=== PATIENT | female | born 1950 | race Caucasian/White ===

== ENCOUNTER → 2016-10-24 | Outpatient (CLI) | payer MEDICARE ==
--- NOTE | 2016-10-24 07:46 | RAD ---
Indication: Chronic kidney disease type III. The right kidney measures 10.5 x 4.3 x 4.4 cm and the left kidney measures 10.2 x 4.3 x 4.9 cm. The cortical thickness and echogenicity is normal. No calculi or hydronephrosis is identified. The bladder is unremarkable. Impression: Unremarkable renal ultrasound.
[2016-10-24 08:03] LABS: HEMATOCRIT 29.3 % (36.0-47.0); HEMOGLOBIN 9.5 g/dL (12.0-15.5)
[2016-10-24 08:34] LABS: ALBUMIN 3.2 g/dL (3.4-5.0); CALCIUM 8.8 mg/dL (8.5-10.1); CREATININE 1.8 mg/dL (0.6-1.0); POTASSIUM 3.8 mmol/L (3.5-5.1)
[2016-10-24 08:38] LABS: % SAT IRON 15 % (15-34); IRON,SERUM 35 ug/dL (50-170)
[2016-10-24 22:12] LABS: TOTAL PROTEIN CREATININE RATIO 245 mg/g creat (0-200); UR PROTEIN RD 36.6 mg/dL (Not Estab.)
[2016-10-25 00:11] LABS: VITAMIN D25(OH)TOTAL 5.8 ng/mL (30.0-100.0)
== END | disposition home or self-care (01) ==
LOC: US 07:19
PROVIDERS: ATTEND Internal Medicine Nephrology
DX: N18.3 Chronic kidney disease, stage 3 (moderate) (principal); R60.9 Edema, unspecified
CPT/HCPCS: 36415; 76770; 80069; 82043; 82306; 82570; 82607; 82728; 83036; 83540; 83550; 84156; 85014; 85018

== ENCOUNTER → 2017-02-02 | Outpatient (CLI) | payer MEDICARE ==
--- NOTE | 2017-02-02 11:48 | CARD ---
APPROVED REPORT EXAM: Two-dimensional and M-mode echocardiogram with Doppler and color Doppler. Other Information Quality : Good INDICATION Hypertension/HCVD 2D DIMENSIONS RVDd2.7 (2.9-3.5cm)Left Atrium(2D)4.2 (1.6-4.0cm) IVSd1.8 (0.7-1.1cm)Aortic Root(2D)2.9 (2.0-3.7cm) LVDd3.5 (3.9-5.9cm)LVOT Diameter2.0 (1.8-2.4cm) PWd1.5 (0.7-1.1cm)LVDs2.0 (2.5-4.0cm) FS (%) 30.0 %SV36.2 ml LVEF(%)60.0 (>50%) Aortic Valve AoV Peak Maxwell.165.7cm/sAoV VTI35.3cm AO Peak GR.11.0mmHgLVOT Peak Maxwell.116.0cm/s AO Mean GR.6mmHgAVA (VMAX)2.21cm2 LOBO (VTI)2.40cm2 Mitral Valve MV E Jzspircn20.7cm/sMV DECEL OTCV160bv MV A Qoythibv857.5cm/sE/A Ratio0.8 Tricuspid Valve TR P. Sbyobcvr324nq/sRAP GCRWFFRZ6iqHe TR Peak Gr.88djKwMOWZ19ooQi Pulmonary Vein S1 Pyfxzdij39.0cm/sD2 Pssvaqmy19.4cm/s PVa [id number] LEFT VENTRICLE The left ventricle is normal size. There is mild to moderate concentric left ventricular hypertrophy. The left ventricular systolic function is normal and the ejection fraction is within normal range. T he Ejection Fraction is 60-65%. There is normal LV segmental wall motion. Transmitral Doppler flow pa ttern is Grade I-abnormal relaxation pattern. RIGHT VENTRICLE The right ventricle is normal size. The right ventricular systolic function is normal. ATRIA The left atrium is mildly dilated. The right atrium size is normal. The interatrial septum is intact with no evidence for an atrial septal defect or patent foramen ovale as noted on 2-D or Doppler imagi ng. AORTIC VALVE The aortic valve is calcified but opens well. Doppler and Color Flow revealed no significant aortic r egurgitation. There is no significant aortic valvular stenosis. MITRAL VALVE The mitral valve is calcified but opens well. There is no evidence of mitral valve prolapse. There is no mitral valve stenosis. Doppler and Color-flow revealed mild mitral regurgitation. TRICUSPID VALVE The tricuspid valve is normal in structure and function. Doppler and Color Flow revealed trace tricus pid regurgitation. The PA pressure was estimated at 30 mmHg. There is no tricuspid valve stenosis. PULMONIC VALVE Doppler and Color Flow revealed trace to mild pulmonic valvular regurgitation. There is no pulmonic v alvular stenosis. GREAT VESSELS The aortic root is normal in size. The ascending aorta is normal in size. The IVC is normal in size a nd collapses >50% with inspiration. PERICARDIAL EFFUSION There is no evidence of significant pericardial effusion. Critical Notification Critical Value: No <Conclusion> The left ventricular systolic function is normal and the ejection fraction is within normal range. Th e Ejection Fraction is 60-65%. There is normal LV segmental wall motion.
== END | disposition home or self-care (01) ==
LOC: ECHO 07:56
PROVIDERS: ATTEND Internal Medicine Cardiovascular Disease
DX: I08.1 Rheumatic disorders of both mitral and tricuspid valves (principal)
CPT/HCPCS: 93306

== ENCOUNTER → 2017-02-19 | Outpatient (CLI) | payer MEDICARE | END | disposition home or self-care (01) | LOC: US 12:41 | PROVIDERS: ATTEND Internal Medicine Cardiovascular Disease | DX: I10 Essential (primary) hypertension (principal); R60.0 Localized edema | CPT/HCPCS: 93970 ==

== ENCOUNTER 2017-07-18 17:02 | Emergency (ER) | payer MEDICARE ==
[~2017-07-18] VITALS: Ht 153.7 cm; Wt 92.1 kg
[2017-07-18 17:40] LABS: BASO % 1 % (0-3); EOS % 1 % (0-3); HEMATOCRIT 30.2 % (36.0-47.0); HEMOGLOBIN 9.9 g/dL (12.0-15.5); LYMPH # 1.7 x10^3/uL (1.0-4.8); LYMPH % 19 % (24-48); MEAN CORPUSCULAR HEMOGLOBIN 26 pg (25-35); MEAN CORPUSCULAR HGB CONC 33 g/dL (31-37); MEAN CORPUSCULAR VOLUME 79 fL (79-100); MONO % 8 % (0-9); NEUT % 72 % (31-73); PLATELET COUNT 180 x10^3/uL (140-400); RED BLOOD COUNT 3.85 x10^6/uL (3.50-5.40); RED CELL DISTRIBUTION WIDTH 14.9 % (11.5-14.5); WHITE BLOOD COUNT 8.9 x10^3/uL (4.0-11.0)
[2017-07-18 17:48] LABS: CALCIUM 8.6 mg/dL (8.5-10.1); CREATININE 2.3 mg/dL (0.6-1.0); GFR 21.1; POTASSIUM 4.1 mmol/L (3.5-5.1)
[2017-07-18 17:53] LABS: ALBUMIN/GLOBULIN RATIO 0.6 (1.0-1.7); TOTAL BILIRUBIN 0.6 mg/dL (0.2-1.0)
--- NOTE | 2017-07-18 18:28 | RAD ---
Left Lower Extremity Venous Doppler Ultrasound Indication: Left lower extremity swelling, calf tightness. Comparison: None. Procedure: Color Doppler, spectral Doppler, and grayscale images with and without compression are obtained in the area of the common femoral vein, superficial femoral vein - femoral vein junction, main femoral vein (superficial femoral vein) and popliteal vein. Veins of the proximal calf are also imaged. Findings: There is normal duplex flow, color flow and compressibility of all visualized vein segments. There is no evidence of deep venous thrombosis. Left superficial femoral vein appears duplicated. There is evidence of subcutaneous edema of the left lower extremity. Reactive left inguinal lymph nose are seen. Impression: No evidence of left lower extremity deep venous thrombosis. Electronically signed by: Mt Omer MD (07/18/2017 6:24 PM) [facility]
[2017-07-18] MEDS ORDERED: SULF1TAB24 PO (18:30)
--- NOTE | 2017-07-18 18:30 | PHYS DOC ---
Past Medical History Past Medical History: Anxiety, Diabetes-Type II, Hypertension, Other Additional Past Medical Histor: lower extremity fluid retention Past Surgical History: No Surgical History Alcohol Use: None Drug Use: None Adult General Chief Complaint Chief Complaint: LOWER EXTREMITY SWELLING HPI HPI Patient is a 66 year old female brought to the ED by her daughter with the complaint of left leg swelling for a few days. The patient has had bilateral leg swelling for several months. She had an echocardiogram which was reported as normal. She has been taking Lasix for a few months. She has not quit taking it. Her leg swelling has been stable, until just the last day or 2 when her left leg became more swollen and also has had some pain. She denies fever or chills. Denies shortness of air. She's never had a blood clot. PCP Dr. Merly Shoemaker Patient is being treated for hypertension and diabetes. She denies history of congestive heart failure or fluid on her lungs. She also has kidney disease and sees Dr. Perez for that. She sees Dr. King for cardiology. Review of Systems Review of Systems Constitutional: Denies fever or chills [] HENT: Denies nasal congestion or sore throat [] Respiratory: Denies cough or shortness of breath [] Cardiovascular: Denies chest pain GI: Denies abdominal pain, nausea, vomiting, bloody stools or diarrhea [] : Denies dysuria or hematuria [] Musculoskeletal: Denies back pain or joint pain [] Integument: As in history of present illness Neurologic: Denies headache Allergies Allergies Allergies Coded Allergies Type Severity Reaction Last Updated Verified ROGER Inhibitors Allergy Intermediate severe cough 07/18/17 Yes Physical Exam Physical Exam Constitutional: Well developed, well nourished, no acute distress, non-toxic appearance. Pulse ox 98% on room air. HENT: Normocephalic, atraumatic, bilateral external ears normal, nose normal. [ ] Eyes: conjunctiva normal, no discharge. [] Neck: Normal range of motion, no stridor. [] Cardiovascular:Heart rate regular rhythm, no murmur [] Lungs & Thorax: Bilateral breath sounds clear to auscultation without rales Abdomen: Bowel sounds normal, soft, no tenderness, no masses, no pulsatile masses. [] Skin: Warm, dry, no erythema, no rash. [] Extremities: Right leg has 1+ pretibial and ankle edema with a little foot edema. Left leg has more swelling than the right, with redness and warmth of the calf and ankle. There is firmness and induration of the left calf. It is nontender. There is no foot ulcer or lesion but she does have a mild amount of dry skin on both feet. Neurologic: Alert and oriented X 3, normal motor function, no focal deficits noted. [] Current Patient Data Vital Signs Vital Signs Date Time Temp Pulse Resp B/P (MAP) Pulse Ox O2 Delivery O2 Flow Rate FiO2 07/18/17 17:10 98.2 71 24 179/79 (112) 99 Room Air 98.2 Lab Values Laboratory Tests Test 07/18/17 17:25 White Blood Count 8.9 x10^3/uL (4.0-11.0) Red Blood Count 3.85 x10^6/uL (3.50-5.40) Hemoglobin 9.9 g/dL (12.0-15.5) L Hematocrit 30.2 % (36.0-47.0) L Mean Corpuscular Volume 79 fL (79-100) Mean Corpuscular Hemoglobin 26 pg (25-35) Mean Corpuscular Hemoglobin Concent 33 g/dL (31-37) Red Cell Distribution Width 14.9 % (11.5-14.5) H Platelet Count 180 x10^3/uL (140-400) Neutrophils (%) (Auto) 72 % (31-73) Lymphocytes (%) (Auto) 19 % (24-48) L Monocytes (%) (Auto) 8 % (0-9) Eosinophils (%) (Auto) 1 % (0-3) Basophils (%) (Auto) 1 % (0-3) Neutrophils # (Auto) 6.4 x10^3uL (1.8-7.7) Lymphocytes # (Auto) 1.7 x10^3/uL (1.0-4.8) Monocytes # (Auto) 0.7 x10^3/uL (0.0-1.1) Eosinophils # (Auto) 0.1 x10^3/uL (0.0-0.7) Basophils # (Auto) 0.0 x10^3/uL (0.0-0.2) D-Dimer (Kayleen) 1.12 ug/mlFEU (0.00-0.50) H Sodium Level 136 mmol/L (136-145) Potassium Level 4.1 mmol/L (3.5-5.1) Chloride Level 100 mmol/L (98-107) Carbon Dioxide Level 26 mmol/L (21-32) Anion Gap 10 (6-14) Blood Urea Nitrogen 21 mg/dL (7-20) H Creatinine 2.3 mg/dL (0.6-1.0) H Estimated GFR (Cockcroft-Gault) 21.1 BUN/Creatinine Ratio 9 (6-20) Glucose Level 220 mg/dL (70-99) H Calcium Level 8.6 mg/dL (8.5-10.1) Total Bilirubin 0.6 mg/dL (0.2-1.0) Aspartate Amino Transferase (AST) 15 U/L (15-37) Alanine Aminotransferase (ALT) 23 U/L (14-59) Alkaline Phosphatase 80 U/L (46-116) DU-Lur-Z-Type Natriuretic Peptide 533 pg/mL (0-124) H Total Protein 8.0 g/dL (6.4-8.2) Albumin 3.0 g/dL (3.4-5.0) L Albumin/Globulin Ratio 0.6 (1.0-1.7) L Laboratory Tests 07/18/17 17:25 Laboratory Tests 07/18/17 17:25 EKG EKG [] Radiology/Procedures Radiology/Procedures Venous Doppler of the left lower extremity. No evidence of DVT. Reactive lymph nodes in the groin.[] Course & Med Decision Making Course & Med Decision Making Pertinent Labs and Imaging studies reviewed. (See chart for details) 66-year-old female with a history of hypertension, diabetes, and kidney disease , presents with left leg has become more swollen than the right over the last day or 2, with some redness and warmth. Vascular Doppler was done and DVT is ruled out. Labs are stable. I believe the patient's left leg symptoms are from cellulitis. See instructions for plan. [] Dragon Disclaimer Dragon Disclaimer This electronic medical record was generated, in whole or in part, using a voice recognition dictation system. Departure Departure Impression: Primary Impression: Cellulitis of left leg Disposition: 01 HOME, SELF-CARE Condition: STABLE Referrals: MERLY SHOEMAKER MD (PCP) Patient Instructions: Cellulitis, [id number] Additional Instructions: Tests in the emergency department were negative for blood clot. I believe your leg swelling, redness, and warmth is from cellulitis, which is a skin infection. We will treat your cellulitis with an antibiotic. It's very important to try to stay off of your legs and keep your left leg elevated as much as possible especially for the next 2 or 3 days, to keep the swelling down. If you develop fever, chills, feeling weak or worse, return, you may need to be admitted for IV antibiotics. Scripts Sulfamethoxazole/Trimethoprim (BACTRIM DS TABLET) 1 Each Tablet 1 TAB PO BID for cellulitis, #20 TAB Prov: ANATOLY ANDERSON MD 07/18/17 ANATOLY ANDERSON MD Jul 18, 2017 18:30
[2017-07-18 18:50] VITALS: BP 163/77
== END 2017-07-18 18:58 | disposition home or self-care (01) ==
LOC: ER 17:02
DX: L03.116 Cellulitis of left lower limb (principal); I10 Essential (primary) hypertension; E11.9 Type 2 diabetes mellitus without complications; Z88.8 Allergy status to other drugs, medicaments and biological substances
CPT/HCPCS: 36415; 80053; 83880; 85025; 85379; 93971; 99285-25

== ENCOUNTER → 2017-09-10 | Outpatient (CLI) | payer MEDICARE ==
[~2017-09-10] MED LIST: AMOX1TAB61 PO; HYDR-971 PO; SULF1TAB24 PO
--- NOTE | 2017-09-10 15:30 | RAD ---
DATE: 09/10/2017 EXAM: DIGITAL SCREEN BILAT W/CAD HISTORY: Routine screening COMPARISON: None available This study was interpreted with the benefit of Computerized Aided Detection (CAD). The breast parenchyma is heterogeneously dense, which could reduce sensitivity of mammography. Breast parenchyma level C. FINDINGS: A small nodule at the 12:00 location in the left breast demonstrates coarse calcifications compatible with a benign fibroadenoma. No other discrete mass is seen. There are additional scattered benign type calcifications in both breasts. Benign-appearing lymph node type densities are present in the axillary regions. IMPRESSION: There is no mammographic evidence of malignancy in either breast. BI-RADS CATEGORY: 2 BENIGN FINDING(S) RECOMMENDED FOLLOW-UP: 12M 12 MONTH FOLLOW-UP PQRS compliance statement: Patient information was entered into a reminder system with a target due date for the next mammogram. Mammography is a sensitive method for finding small breast cancers, but it does not detect them all and is not a substitute for careful clinical examination. A negative mammogram does not negate a clinically suspicious finding and should not result in delay in biopsying a clinically suspicious abnormality. "Our facility is accredited by the [employer] Mammography Program."
== END | disposition home or self-care (01) ==
LOC: MAMMO 14:48
PROVIDERS: ATTEND Family Medicine
DX: Z12.31 Encounter for screening mammogram for malignant neoplasm of breast (principal)
CPT/HCPCS: G0202; 77067

== ENCOUNTER 2017-09-12 14:19 | Emergency (ER) | payer MEDICARE ==
[~2017-09-12] VITALS: Ht 154.9 cm; Wt 92.1 kg
[~2017-09-12 14:19] MED LIST changes: -AMOX1TAB61 PO; -HYDR-971 PO
[2017-09-12 14:45] VITALS: BP 123/59
[2017-09-12] MEDS ORDERED: DIPHTH,PERTUSS(ACELL),TET TOX 0.5 ML DISP.SYRIN. VAX IM ONE (14:45)
--- NOTE | 2017-09-12 15:11 | RAD ---
Indication: Nasal pain after fall. Technique: Axial images and coronal and sagittal reformatted images are provided. No comparison is available. One or more of the following individualized dose reduction techniques were utilized for this examination: 1. Automated exposure control 2. Adjustment of the mA and/or kV according to patient size 3. Use of iterative reconstruction technique Findings: There is no orbital fracture. Zygomatic arches are intact. There is a minimally depressed nasal bone fracture on the right. Acuity is not clear. There is nasal septal deviation to the right. There is some irregularity of the nasal septum which is not specific. Pterygoid plates are intact. Mandible is intact. There is no hemosinus. Paranasal sinuses are clear. The included mastoid air cells are clear. Orbital contents are unremarkable. Impression: 1. Right nasal bone fracture, the acuity of which is not clear. 2. Irregularity at the bony nasal septum, fractured nasal septum not excluded. There is no adjacent opacity present. Nasal septal hematoma is a clinical diagnosis frequently missed by imaging.
[2017-09-12] MEDS ORDERED: AMOX1TAB61 PO (15:50)
[2017-09-12] MEDS ORDERED: HYDR-971 PO (15:50)
--- NOTE | 2017-09-12 15:50 | PHYS DOC ---
Past Medical History Past Medical History: Anxiety, Diabetes-Type II, Hypertension, Other Additional Past Medical Histor: lower extremity fluid retention Past Surgical History: No Surgical History Alcohol Use: None Drug Use: None Adult General Chief Complaint Chief Complaint: NOSEBLEED HPI HPI Patient is a 66 year old female who presents with hx of HTN, DMII who presents nose pain after tripping and falling. Patient denies any LOC. Review of Systems Review of Systems Constitutional: Denies fever or chills [] Eyes: Denies change in visual acuity, redness, or eye pain [] HENT: Reports nose pain. Denies nasal congestion or sore throat [] Respiratory: Denies cough or shortness of breath [] Cardiovascular: No additional information not addressed in HPI [] GI: Denies abdominal pain, nausea, vomiting, bloody stools or diarrhea [] : Denies dysuria or hematuria [] Musculoskeletal: Denies back pain or joint pain [] Integument: Denies rash or skin lesions [] Neurologic: Denies headache, focal weakness or sensory changes [] All other systems were reviewed and found to be within normal limits, except as documented in this note. Current Medications Current Medications Current Medications Medications (Trade) Dose Ordered Sig/Timmy Start Time Stop Time Status Last Admin Dose Admin Diphtheria/ Tetanus/Acell Pertussis (Boostrix) 0.5 ml ONCE ONCE 09/12/17 14:45 09/12/17 14:46 DC Allergies Allergies Allergies Coded Allergies Type Severity Reaction Last Updated Verified ROGER Inhibitors Allergy Intermediate severe cough 07/18/17 Yes Physical Exam Physical Exam Constitutional: Well developed, well nourished, no acute distress, non-toxic appearance. [] HENT: Normocephalic, atraumatic, bilateral external ears normal, oropharynx moist, no oral exudates, nose appears obviously deformed at the nasal bridge. There is soft tissue swelling noted on the nasal bridge as well as bruising. Dry blood noted in the right nasal cavity. No active nose bleeding. Eyes: PERRLA, EOMI, conjunctiva normal, no discharge. [] Neck: Normal range of motion, no tenderness, supple, no stridor. [] Cardiovascular:Heart rate regular rhythm, no murmur [] Lungs & Thorax: Bilateral breath sounds clear to auscultation [] Abdomen: Bowel sounds normal, soft, no tenderness, no masses, no pulsatile masses. [] Skin: Warm, dry, no erythema, no rash. [] Back: No tenderness, no CVA tenderness. [] Extremities: No tenderness, no cyanosis, no clubbing, ROM intact, no edema. [] Neurologic: Alert and oriented X 3, normal motor function, normal sensory function, no focal deficits noted. [] Psychologic: Affect normal, judgement normal, mood normal. [] Current Patient Data Vital Signs Vital Signs Date Time Temp Pulse Resp B/P (MAP) Pulse Ox O2 Delivery O2 Flow Rate FiO2 09/12/17 14:45 97.9 72 18 96 Room Air 97.9 EKG EKG [] Radiology/Procedures Radiology/Procedures []PROCEDURE: CT MAXILLOFACIAL WO CONTRAST Indication: Nasal pain after fall. Technique: Axial images and coronal and sagittal reformatted images are provided. No comparison is available. One or more of the following individualized dose reduction techniques were utilized for this examination: 1. Automated exposure control 2. Adjustment of the mA and/or kV according to patient size 3. Use of iterative reconstruction technique Findings: There is no orbital fracture. Zygomatic arches are intact. There is a minimally depressed nasal bone fracture on the right. Acuity is not clear. There is nasal septal deviation to the right. There is some irregularity of the nasal septum which is not specific. Pterygoid plates are intact. Mandible is intact. There is no hemosinus. Paranasal sinuses are clear. The included mastoid air cells are clear. Orbital contents are unremarkable. Impression: 1. Right nasal bone fracture, the acuity of which is not clear. 2. Irregularity at the bony nasal septum, fractured nasal septum not excluded. There is no adjacent opacity present. Nasal septal hematoma is a clinical diagnosis frequently missed by imaging. DICTATED and SIGNED BY: KEMAR MCKEON MD DATE: 09/12/17 [id number] CC: MERLY VIGIL MD; KERI MORENO APRN; AUDREY,STAFF ~ Course & Med Decision Making Course & Med Decision Making Pertinent Labs and Imaging studies reviewed. (See chart for details) Patient is in the ED with nose pain after falling. CT of the maxillary facial was noted for- Right nasal bone fracture, Irregularity at the bony nasal septum, fractured nasal septum not excluded. Patient be discharged with Augmentin provided instructions to follow-up with [facility] plastic surgery. Dragon Disclaimer Dragon Disclaimer This electronic medical record was generated, in whole or in part, using a voice recognition dictation system. Departure Departure Impression: Primary Impression: Nasal bone fx-open Additional Impression: Fall from standing Disposition: 01 HOME, SELF-CARE Condition: STABLE Referrals: MERLY VIGIL MD (PCP) Patient Instructions: Nasal Fracture, [id number] Additional Instructions: You have nose fracture. Please call [facility] plastic surgery [phone] and set up appointment for follow up Scripts Hydrocodone/Apap 5-325 (NORCO 5-325 TABLET) 1 Each Tablet 1 TAB PO Q4-6HRS Y for PAIN, #14 TAB Prov: KERI MORENO SURGICAL SALES REPRESENTATIVE 09/12/17 Amoxicillin/Potassium Clav (AUGMENTIN 875-125 TABLET) 1 Each Tablet 1 TAB PO BID, #20 TAB Prov: KERI MORENO SURGICAL SALES REPRESENTATIVE 09/12/17 Problem Qualifiers Primary Impression: Nasal bone fx-open Encounter type: initial encounter Qualified Codes: S02.2XXB - Fracture of nasal bones, initial encounter for open fracture Additional Impression: Fall from standing Encounter type: initial encounter Qualified Codes: W19.XXXA - Unspecified fall, initial encounter KERI MORENO SURGICAL SALES REPRESENTATIVE Sep 12, 2017 15:50
== END 2017-09-12 16:07 | disposition home or self-care (01) ==
LOC: ER 14:19
DX: S02.2XXB Fracture of nasal bones, initial encounter for open fracture (principal); I10 Essential (primary) hypertension; E11.9 Type 2 diabetes mellitus without complications; F41.9 Anxiety disorder, unspecified; Z88.8 Allergy status to other drugs, medicaments and biological substances; W01.0XXA Fall on same level from slipping, tripping and stumbling without subsequent striking against object, initial encounter; Y93.89 Activity, other specified; Y99.8 Other external cause status; Y92.89 Other specified places as the place of occurrence of the external cause
CPT/HCPCS: 70486; 90471; 90715; 99284-25

== ENCOUNTER → 2019-10-27 | Outpatient (CLI) | payer MEDICARE ==
[~2019-10-27] MED LIST changes: +AMOX1TAB61 PO; +HYDR-3164 PO
--- NOTE | 2019-10-27 15:51 | RAD ---
MRI Cervical Spine Without Contrast History:Nerve entrapment syndrome of the upper extremities right greater than left, bilateral arm radiculopathy right greater than left Technique: Multiplanar, multi sequential noncontrast MR imaging was performed of the cervical spine. Comparison: None Findings: There is some motion. Cervical cord caliber is within normal limits without focal signal abnormality. There is small superior Schmorl's node C7 and mild inferior endplate concavity of C5, minimal inferior height loss of C6. Mild anterior anterior C4-5 and superior C7 endplate edema is more likely reactive/degenerative in etiology. There is fairly advanced degenerative disc disease at C5-6 and to a somewhat lesser degree at C4-5 and C6-7. There is straightening of the cervical spine. There is very minimal posterior subluxation of C5 relative to C6 and C6 relative to C7, negligible posterior subluxation C4 relative to C5. C2-C3: Spinal canal and neural foramina are adequate. C3-C4: Neural foramina and spinal canal are adequate. C4-C5: There is a posterior protrusion greatest centrally about 2 to 3 mm AP superimposed on disc osteophyte complex. There is effacement of ventral subarachnoid space and contact of the ventral cord. There is minimal buckling of the ligamentum flavum. Central canal is narrowed to about 6 to 7 mm. Neural foramina are adequate. C5-C6: There is disc osteophyte complex and minimal bulge. There is minimal buckling of the ligamentum flavum. Central canal is narrowed to about 6 to 7 mm with contact of the ventral cord. There is mild uncovertebral degenerative change. Right neural foramen is overall adequate, [id number] narrowing of the left neural foramen. C6-C7: There is disc osteophyte complex and bulge. There is buckling of the ligamentum flavum. Central canal is narrowed to about 8 mm. Sagittal images suggest possible mild narrowing of the right neural foramen although does not appear as significant on the axial images, left neural foramen likely adequate. C7-T1: There is negligible disc osteophyte complex with central canal adequate about 11 mm. There is likely mild uncovertebral degenerative change, possible mild bilateral neural foramina compromise although does not appear as significant on the axial images. Impression: 1. There is multilevel cervical degenerative disc disease greatest at C5-6 and to a somewhat lesser degree at C4-5 and C6-7 with spondylosis at the same levels. There is also spinal stenosis on the order of 6 to 7 mm at C4-5 and C5-6 and to a lesser degree at C6-7. There is multilevel abnormal alignment as stated, multilevel facet degenerative change. There is suspected [id number] narrowing of the left C5-6 neural foramen and possible mild narrowing more inferiorly as described. Electronically signed by: Jhoan Serna MD (10/27/2019 3:48 PM) [id number]
== END | disposition home or self-care (01) ==
LOC: MRI 13:57
PROVIDERS: ATTEND Nurse Practitioner Family
DX: M50.321 Other cervical disc degeneration at C4-C5 level (principal); M48.02 Spinal stenosis, cervical region; M25.78 Osteophyte, vertebrae; M47.816 Spondylosis without myelopathy or radiculopathy, lumbar region; G58.8 Other specified mononeuropathies
CPT/HCPCS: 72141

== ENCOUNTER → 2019-12-01 | Outpatient (CLI) | payer MEDICARE ==
[2019-11-24 11:11] VITALS: BP 164/77
[~2019-12-01] MED LIST changes: +ATOR80TA72 PO; +CALC30CA PO; +CARV25TA2 PO; +CITA40TA5 PO; +CYAN500T52 PO; +ERGO400T2 PO; +FURO-69 PO; +HYDR-2145 PO; +HYDR50CA2 PO; +INSU100I13 SQ; +LOSA-73 PO; +OMEP20TA8 PO
--- NOTE | 2019-12-02 03:03 | PAIN ---
DATE OF SERVICE: 12/01/2019 INITIAL CONSULTATION FOR PAIN CLINIC CHIEF COMPLAINT: Neck and right upper extremity pain. HISTORY OF PRESENT ILLNESS: This is a 69-year-old female who presents with history of pain in the neck and arm, mostly in the hand, mainly on the right side for about 3 months now. The patient reports it came up without any specific injury or action that she is aware of and has had some pain in the arm, mostly in the hand and thumb and fingers with hand tingling on the right side radiating up into the arm and elbow and some in the base of the neck, but mostly in the arm and hand. The patient reports it is constant, tingling with numbness, radiating into the arm, feels like a cold sensation in the arm and wrist as well, mainly on the anterior surface of the thumb and all the fingers, mostly in the first and second fingers primarily. The patient reports it awakens her from sleep at least 3 or 4 times at night, does not affect her bowel or bladder control, does not affect her ability to walk. She has not tried any therapies or treatments thus far. She had an EMG, which showed carpal tunnel syndrome on the right side and some nerve entrapment at the elbow. The patient reports that she has been wearing a wrist splint now for over a week and has not made any difference. It is pretty much the same day and night with tingling, numbness and pain in the right hand and forearm. The patient rates her disability rating from 0-10, 10 being the worst, is an 8 with recreation and social activity, 10 with occupation, 0 with sexual behavior, 6 with self-care and 6 with life support activities. She did have an MRI scan of cervical spine showing multilevel degenerative disk disease, greatest at C5-C6 and to a lesser degree at C4-C5 and C6-C7 with spondylosis at these levels, also spinal stenosis on the order of 6-7 mm at C4-C5, C5-C6 and to a lesser degree at C6-C7 with suspected mild to moderate narrowing of the left C5-C6 neural foramen. PAST MEDICAL HISTORY: Significant for hypertension, diabetes, low iron levels, dizziness, gastroesophageal reflux, carpal tunnel syndrome, and also stage 4 kidney disease. PAST SURGICAL HISTORY: Previous surgeries include bilateral cataract extraction, tonsillectomy and eye surgery in the past. CURRENT MEDICATIONS: Include carvedilol, vitamin D, omeprazole, calcifediol, losartan, insulin, vitamin B12, atorvastatin, hydroxyzine, hydrochlorothiazide, hydrocodone, Lasix, and citalopram. ALLERGIES: THE PATIENT IS ALLERGIC TO ROGER INHIBITORS. FAMILY HISTORY: Significant for arthritis, cancer, diabetes, hypertension, 1 sister with lupus and chronic anemia. SOCIAL HISTORY: The patient does not drink alcohol, does not smoke, does not use any illegal, illicit or recreational drugs. She has one child, living at home. 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 REVIEW OF SYSTEMS: The patient's review of systems is positive for those items mentioned in history of present illness. All systems reviewed and otherwise negative. It is complete, full and well documented on the patient's chart. PHYSICAL EXAMINATION: VITAL SIGNS: The patient's blood pressure is 146/72, pulse 61, respirations 18, temperature is 97.9 degrees Fahrenheit, height is 5 feet 1 inch, and weight is 193 pounds. GENERAL: The patient is awake, alert, oriented, appropriate, very pleasant demeanor. HEENT: Shows normocephalic, atraumatic. Extraocular movements are intact and symmetrical. Oral cavity: Mucous membranes moist and pink. Dentition is intact. NECK: Shows anterior throat supple without palpable lymphadenopathy noted. Swallow reflex symmetrical. CHEST: Shows normal on inspection. Breath sounds are clear to auscultation bilaterally. HEART: Shows S1, S2 clear. No murmurs auscultated. ABDOMEN: Soft, nontender, nondistended. No palpable organomegaly is noted. No rebound or guarding demonstrated. SPINE: Back shows spine grossly in the midline, normal-appearing cervical lordotic curvature, thoracic kyphotic curvature and lumbar lordotic curvature. The patient's neck shows good rotational motion both laterally as well as right and left lateral past 45 degrees closer to 90 degrees without significant pain reported. Also, extension and flexion fully with chin to chest as well as full extension without significant pain reported and good rotational motion of the cervical spine. EXTREMITIES: Upper extremities show deep tendon reflexes 2+ in the biceps and triceps tendons. 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 The patient was initially wearing a wrist splint on the right hand as well on initial presentation. Peripheral pulses are 2+ radial. No peripheral edema is noted. Upper extremities are warm and dry to touch, equal in color and appearance. Shoulder shrug is strong and intact without loss of strength on resistance as is abduction of the shoulders without loss of strength on resistance bilaterally as well without significant pain reported. SKIN: Shows warm and dry, good turgor. No edema. No sores, rashes or bruising throughout. IMPRESSION: 1. This is a 69-year-old female with approximately 3-month history of increasing pain in the right upper extremity with some radicular qualities to it as well. 2. MRI scan of cervical spine as noted. 3. Diabetes. 4. Hypertension. 5. Gastroesophageal reflux. 6. Dizziness. PLAN: Options were discussed with the patient including conservative medical managements, physical therapies and interventional techniques. She would like to pursue most conservative course at this time. We discussed ordering physical therapy with some cervical traction as well as stretching, strengthening, myofascial release, and massage techniques. The patient would like to pursue this. We will make these arrangements and have the patient return to clinic after therapy is progressed or completed and if not significantly improved, we did discuss interventional techniques at that time such as a cervical epidural steroid injection. The patient would like to consider this. We will try therapy first. She was given instruction as well as encouraged to complete the therapy exercises at home as well and we will follow up after therapy. RENETTA BUSCH MD DR: GRUPO/zackery JOB#: [id number] / [id number] ROSE Mishra APRN
== END ==
LOC: PNCL 12:51
PROVIDERS: ATTEND Anesthesiology
DX: M50.30 Other cervical disc degeneration, unspecified cervical region (principal); E11.9 Type 2 diabetes mellitus without complications; I10 Essential (primary) hypertension; K21.9 Gastro-esophageal reflux disease without esophagitis; R42 Dizziness and giddiness
CPT/HCPCS: G0463